=== PATIENT | female | born 1995 | race African-American/Black ===

== ENCOUNTER 2018-10-10 13:54 | Emergency (ER) | payer OTHER ==
[~2018-10-10] VITALS: Ht 160 cm; Wt 73.8 kg
[2018-10-10] MEDS ORDERED: SODIUM CHLORIDE 0.9% 1,000 ML IV ONE ×2 (14:30→16:54)
[2018-10-10] MEDS ORDERED: ONDANSETRON HCL 4MG/2ML INJ IV STA (14:30)
[2018-10-10] MEDS ORDERED: FAMOTIDINE 20MG/2ML VIAL IV ONE (14:45)
[2018-10-10 15:30] LABS: BASOPHILS % 0.3 % (0.0-2.0); EOSINOPHILS % 0.4 % (0.0-5.0); HEMATOCRIT. 34.9 % (36.0-48.0); HEMOGLOBIN. 11.7 g/dL (12.0-16.0); LYMPHOCYTES % 21.4 % (20.0-50.0); MEAN CORPUSCULAR HEMOGLOBIN 26.5 pg (28.0-32.0); MEAN CORPUSCULAR VOLUME 79.1 fL (81.0-99.0); MEAN PLATELET VOLUME 9.4 fl (7.4-10.4); MONOCYTES % 5.1 % (2.0-8.0); NEUTROPHILS % 72.8 % (40.0-76.0); PLATELET 219 x1000/uL (130-400); RED BLOOD CELL COUNT 4.42 mill/uL (4.2-5.4); RED CELL DISTRIBUTION WIDTH 15.7 % (11.6-14.6)
[2018-10-10 15:31] LABS: CHLORIDE 107 mEq/L (98-107)
[2018-10-10 16:09] LABS: CLARITY URINE CLEAR (CLEAR); COLOR URINE YELLOW (YELLOW); KETONES URINE NEGATIVE (NEGATIVE); LEUKOCYTE ESTERASE URINE NEGATIVE (NEGATIVE); NITRITE URINE NEGATIVE (NEGATIVE); OCCULT BLOOD URINE NEGATIVE (NEGATIVE); PROTEIN URINE NEGATIVE (NEGATIVE); SPECIFIC GRAVITY URINE 1.007 (1.005-1.030); UROBILINOGEN URINE 0.2 E.U./dL (0.2-1.0)
[2018-10-10] MEDS ORDERED: ACETAMINOPHEN 325MG TABLET PO STA (16:54)
[2018-10-10 18:38] VITALS: BP 110/59
== END 2018-10-10 19:23 | disposition home or self-care (01) ==
LOC: ER 13:54
DX: O21.9 Vomiting of pregnancy, unspecified (principal); O26.891 Other specified pregnancy related conditions, first trimester; R11.2 Nausea with vomiting, unspecified; R10.9 Unspecified abdominal pain; D64.9 Anemia, unspecified; Z88.2 Allergy status to sulfonamides; Z3A.10 10 weeks gestation of pregnancy
CPT/HCPCS: 36415; 76801; 76817; 80053; 81003; 81025; 83690; 85025; 96361; 96374; 96375; 99284; J2405; J3490; J7030

== ENCOUNTER 2024-08-25 09:26 | Emergency (ER) | payer MEDICAID, OTHER ==
[~2024-08-25] VITALS: Ht 162.6 cm; Wt 84.0 kg
[2024-08-25 09:30] VITALS: O2SAT 100
[2024-08-25 09:31] VITALS: BP 104/54; PULSE 84; RESP 16; TEMP 36.9; O2SAT 100
[2024-08-25] MEDS: AZITHROMYCIN 500 MG TABLET PO ONE (10:15)
[2024-08-25] MEDS: CEFTRIAXONE SODIUM 500MG VIAL IM ONE (10:15)
[2024-08-25 10:45] LABS: CLARITY URINE CLEAR (CLEAR); COLOR URINE YELLOW (YELLOW); GLUCOSE URINE NEGATIVE (NEGATIVE); KETONES URINE TRACE (NEGATIVE); LEUKOCYTE ESTERASE URINE NEGATIVE (NEGATIVE); NITRITE URINE NEGATIVE (NEGATIVE); OCCULT BLOOD URINE NEGATIVE (NEGATIVE); PROTEIN URINE NEGATIVE (NEGATIVE); SPECIFIC GRAVITY URINE 1.027 (1.005-1.030); UROBILINOGEN URINE 0.2 E.U./dL (0.2-1.0)
[2024-08-25] MEDS ORDERED: DOXY100T2 MT (20:21)
[2024-08-27 05:09] LABS: CHLAMYDIA TRACHOMATIS NAA Negative (Negative); NEISSERIA GONORRHOEAE NAA Negative (Negative)
== END 2024-08-25 10:07 | disposition home or self-care (01) ==
LOC: ER 09:26
DX: Z11.3 Encounter for screening for infections with a predominantly sexual mode of transmission (principal); Z88.2 Allergy status to sulfonamides; R30.0 Dysuria
CPT/HCPCS: 99283; 87491; 87591; 81003; 81025; 96372; J0696

== ENCOUNTER 2024-10-19 10:00 | Emergency (ER) | payer MEDICAID ==
[~2024-10-19] VITALS: Ht 162.6 cm; Wt 86.0 kg
[~2024-10-19 10:00] MED LIST: DOXY100T2 MT
[2024-10-19 10:02] VITALS: PULSE 99; RESP 18; O2SAT 98
[2024-10-19 10:05] VITALS: BP 135/78; TEMP 36.9; O2SAT 100
[2024-10-19 11:12] LABS: CLARITY URINE CLEAR (CLEAR); COLOR URINE YELLOW (YELLOW); GLUCOSE URINE NEGATIVE (NEGATIVE); KETONES URINE NEGATIVE (NEGATIVE); LEUKOCYTE ESTERASE URINE NEGATIVE (NEGATIVE); NITRITE URINE NEGATIVE (NEGATIVE); OCCULT BLOOD URINE NEGATIVE (NEGATIVE); PH URINE 5.5 (4.5-8.0); PROTEIN URINE NEGATIVE (NEGATIVE); SPECIFIC GRAVITY URINE 1.022 (1.005-1.030); UROBILINOGEN URINE 0.2 E.U./dL (0.2-1.0)
[2024-10-19] MEDS ORDERED: CLIN-116 MT (11:48)
[2024-10-22 04:07] LABS: CHLAMYDIA TRACHOMATIS NAA Negative (Negative); NEISSERIA GONORRHOEAE NAA Negative (Negative)
== END 2024-10-19 12:05 | disposition home or self-care (01) ==
LOC: ER 10:10
DX: N39.0 Urinary tract infection, site not specified (principal); Z88.2 Allergy status to sulfonamides
CPT/HCPCS: 81003; 87491; 87591; 99283